=== PATIENT | male | born 1990 | race Caucasian/White ===

== ENCOUNTER 2019-12-21 11:30 | Emergency (ER) | payer BC, OTHER ==
[2019-12-21] MEDS ORDERED: ONDANSETRON 4 MG (ODT) TAB ONE (13:00)
--- NOTE | 2019-12-21 13:58 | ER ---
Nurse's Notes [facility] Name: Edmond Lozano Age: 29 yrs Sex: Male : 1990 Arrival Date: 12/21/2019 Time: 11:33 Bed 16 Private MD: Diagnosis: Vomiting;Acute upper respiratory infection, unspecified Presentation: 12/20 11:59 Chief complaint: Patient states: fever last night, vomiting since this morning, also iw has chills, cough, runny nose. Coronavirus screen: congestion, cough unrelated to allergies, fever, muscle pain, runny nose, Client presents with at least one sign or symptom that may indicate coronavirus-19. Standard/surgical mask placed on the client. Provider contacted for isolation considerations. Ebola Screen: Patient negative for fever greater than or equal to 101.5 degrees Fahrenheit, and additional compatible Ebola Virus Disease symptoms Patient denies exposure to infectious person. Patient denies travel to an Ebola-affected area in the 21 days before illness onset. No symptoms or risks identified at this time. Initial Sepsis Screen: Does the patient meet any 2 criteria? No. Patient's initial sepsis screen is negative. Does the patient have a suspected source of infection? No. Patient's initial sepsis screen is negative. Risk Assessment: Do you want to hurt yourself or someone else? Patient reports no desire to harm self or others. 11:59 Method Of Arrival: Ambulatory iw 11:59 Acuity: ELA 3 iw 12:01 Onset of symptoms was December 20, 2019. iw Historical: - Allergies: 12:02 No Known Allergies; iw - Home Meds: 12:02 None [Active]; iw - PMHx: 12:02 PTSD; iw - PSHx: 12:02 None; iw - Immunization history:: Adult Immunizations up to date. - Social history:: Smoking status: . Screenin:00 Abuse screen: Denies threats or abuse. Denies injuries from another. Nutritional ca1 screening: No deficits noted. Tuberculosis screening: No symptoms or risk factors identified. Fall Risk None identified. Assessment: 12:00 General: Appears in no apparent distress. comfortable, Behavior is calm, cooperative, ca1 appropriate for age. Pain: Denies pain. Neuro: Level of Consciousness is awake, alert, obeys commands, Oriented to person, place, time, situation. Cardiovascular: Heart tones S1 S2 present Capillary refill < 3 seconds Patient's skin is warm and dry. Respiratory: Airway is patent Respiratory effort is even, unlabored, Respiratory pattern is regular, symmetrical, Breath sounds are clear bilaterally. GI: Abdomen is flat, non-distended, Bowel sounds present X 4 quads. Abd is soft and non tender X 4 quads. Reports nausea, vomiting. : No signs and/or symptoms were reported regarding the genitourinary system. EENT: No signs and/or symptoms were reported regarding the EENT system. Derm: Skin is intact, is healthy with good turgor, Skin is pink, warm \T\ dry. Musculoskeletal: Circulation, motion, and sensation intact. Capillary refill < 3 seconds. 13:00 Reassessment: Patient appears in no apparent distress at this time. Patient and/or ca1 family updated on plan of care and expected duration. Pain level reassessed. Patient is alert, oriented x 3, equal unlabored respirations, skin warm/dry/pink. 14:05 Reassessment: Patient appears in no apparent distress at this time. Patient and/or ca1 family updated on plan of care and expected duration. Pain level reassessed. Patient is alert, oriented x 3, equal unlabored respirations, skin warm/dry/pink. Vital Signs: 11:59 BP 116 / 81; Pulse 88; Resp 16 S; Temp 99.1; Pulse Ox 100% on R/A; Weight 63.5 kg; iw Height 5 ft. 8 in. (172.72 cm); 13:00 BP 116 / 74; Pulse 88; Resp 17 S; Pulse Ox 100% on R/A; ca1 14:00 BP 115 / 78; Pulse 87; Resp 15 S; Pulse Ox 100% on R/A; ca1 11:59 Body Mass Index 21.29 (63.50 kg, 172.72 cm) iw ED Course: 11:33 Patient arrived in ED. as 11:54 Brooklynn Tobias, MARY LOU is Primary Nurse. ca1 11:57 Quinn White NP is PHCP. pm1 11:57 Zackary Anguiano MD is Attending Physician. pm1 12:00 Patient has correct armband on for positive identification. Bed in low position. Call ca1 light in reach. Side rails up X 1. Pulse ox on. NIBP on. 12:01 Triage completed. iw 12:01 Arm band placed on. iw 14:05 No provider procedures requiring assistance completed. Patient did not have IV access ca1 during this emergency room visit. Administered Medications: 12:45 Drug: Zofran (Ondansetron) 4 mg Route: PO; ca1 Outcome: 13:58 Discharge ordered by . pm1 14:05 Discharged to home ambulatory. ca1 14:05 Condition: stable 14:05 Discharge instructions given to patient, Instructed on discharge instructions, follow up and referral plans. Demonstrated understanding of instructions, follow-up care. 14:09 Patient left the ED. ca1 Addendum: 12/23/2019 14:18 Addendum: COVID-19 Result: Positive result giiven to ED physician to notify pt. s s Physician: Mo Phillips MD Physician was able to contact pt and pt was notified of positive COVID-19 swab result. Physician answered pt questions. Signatures: Madiha Greene Irene, RN RN iw Cece Mccracken RN RN ss Quinn White, TECHNICAL PROGRAMS MANAGER TECHNICAL PROGRAMS MANAGER pm1 Brooklynn Tobias RN RN ca1
--- NOTE | 2019-12-21 13:58 | EDPHYS ---
Physician Documentation [facility] Name: Edmond Lozano Age: 29 yrs Sex: Male : 1990 Arrival Date: 12/21/2019 Time: 11:33 Bed 16 Private MD: ED Physician Zackary Anguiano HPI: 12/20 12:39 This 29 yrs old Male presents to ER via Ambulatory with complaints of Fever, pm1 Vomiting. 12:39 The patient reports fever, that was measured at 101 degrees Fahrenheit. Onset: The pm1 symptoms/episode began/occurred yesterday. Modifying factors: there are no obvious modifying factors. Associated signs and symptoms: Pertinent positives: sore throat, Fever, chills, cough, runny nose. Vomiting onset this AM with PO intake, Pertinent negatives: abdominal pain, diarrhea, headache, shortness of breath. Severity of symptoms: in the emergency department the symptoms are worse. The patient has not recently seen a physician. Patient worried about covid and needs testing to return to work. Historical: - Allergies: 12:02 No Known Allergies; iw - Home Meds: 12:02 None [Active]; iw - PMHx: 12:02 PTSD; iw - PSHx: 12:02 None; iw - Immunization history:: Adult Immunizations up to date. - Social history:: Smoking status: . ROS: 12:39 Eyes: Negative for injury, pain, redness, and discharge. pm1 12:39 Neck: Negative for injury, pain, and swelling, Cardiovascular: Negative for chest pain, palpitations, and edema. 12:39 Back: Negative for injury and pain, MS/Extremity: Negative for injury and deformity, Skin: Negative for injury, rash, and discoloration, Neuro: Negative for headache, weakness, numbness, tingling, and seizure. 12:39 Constitutional: Positive for body aches, chills, fever. 12:39 ENT: Positive for sore throat, Negative for ear pain. 12:39 Respiratory: Positive for cough. 12:39 Abdomen/GI: Positive for nausea, vomiting, Negative for abdominal pain, diarrhea, constipation. Exam: 12:39 Constitutional: This is a well developed, well nourished patient who is awake, alert, pm1 and in no acute distress. Head/Face: Normocephalic, atraumatic. 12:39 Neck: Trachea midline, no thyromegaly or masses palpated, and no cervical lymphadenopathy. Supple, full range of motion without nuchal rigidity, or vertebral point tenderness. No Meningismus. 12:39 Back: No spinal tenderness. No costovertebral tenderness. Full range of motion. Skin: Warm, dry with normal turgor. Normal color with no rashes, no lesions, and no evidence of cellulitis. MS/ Extremity: Pulses equal, no cyanosis. Neurovascular intact. Full, normal range of motion. 12:39 ENT: External ear(s): are unremarkable, Ear canal(s): are normal, TM's: are normal, Posterior pharynx: Tonsils: bilaterally enlarged, with erythema, no exudate, no ulcerations, erythema, that is mild, peritonsillar mass, is not appreciated. 12:39 Cardiovascular: Exam negative for acute changes, Rate: normal, Rhythm: regular, Pulses: no pulse deficits are appreciated. 12:39 Respiratory: Exam negative for acute changes, respiratory distress, shortness of breath. 12:39 Abdomen/GI: Exam negative for acute changes, Inspection: abdomen appears normal, Palpation: abdomen is soft and non-tender, in all quadrants. 12:39 Neuro: Exam negative for acute changes, Orientation: is normal, Mentation: is normal, Motor: is normal, moves all fours. Vital Signs: 11:59 BP 116 / 81; Pulse 88; Resp 16 S; Temp 99.1; Pulse Ox 100% on R/A; Weight 63.5 kg; iw Height 5 ft. 8 in. (172.72 cm); 13:00 BP 116 / 74; Pulse 88; Resp 17 S; Pulse Ox 100% on R/A; ca1 14:00 BP 115 / 78; Pulse 87; Resp 15 S; Pulse Ox 100% on R/A; ca1 11:59 Body Mass Index 21.29 (63.50 kg, 172.72 cm) iw MDM: 12:27 Patient medically screened. pm1 13:44 Data reviewed: vital signs. Data interpreted: Pulse oximetry: on room air is 100 %. pm1 Interpretation: normal. Counseling: I had a detailed discussion with the patient and/or guardian regarding: the historical points, exam findings, and any diagnostic results supporting the discharge/admit diagnosis, lab results, the need for outpatient follow up, to return to the emergency department if symptoms worsen or persist or if there are any questions or concerns that arise at home. 13:44 ED course: Patient passed PO challenge with zofran. Will d/c home with antiemetics. pm1 Pending covid results. 12/20 12:29 Order name: COVID-19 pm1 12/20 12:29 Order name: Flu; Complete Time: 13:43 pm1 12/20 12:29 Order name: Strep; Complete Time: 13:18 pm1 12/20 12:29 Order name: Droplet/Contact Precautions; Complete Time: 12:42 pm1 12/20 13:39 Order name: Throat Culture EDMS 12/20 12:29 Order name: Labs collected and sent; Complete Time: 13:09 pm1 12/20 12:29 Order name: PO challenge; Complete Time: 13:09 pm1 Administered Medications: 12:45 Drug: Zofran (Ondansetron) 4 mg Route: PO; ca1 Disposition: 18:21 Co-signature as Attending Physician, Zackary Anguiano MD. rn Disposition: 12/21/19 13:58 Discharged to Home. Impression: Acute upper respiratory infection, unspecified, Vomiting. - Condition is Stable. - Discharge Instructions: Antibiotic Resistance, Nausea and Vomiting, Adult, Upper Respiratory Infection, Adult, Viral Respiratory Infection, COVID-19. - Prescriptions for Zofran ODT 4 mg Oral tablet,disintegrating - place 1 tablet by TRANSLINGUAL route every 8 hours As needed; 20 tablet. - Work release form, Medication Reconciliation Form, Thank You Letter, Antibiotic Education, Prescription Opioid Use form. - Follow up: Emergency Department; When: As needed; Reason: Worsening of condition. Follow up: Private Physician; When: 2 - 3 days; Reason: Recheck today's complaints, Continuance of care, Re-evaluation by your physician. - Problem is new. - Symptoms have improved. Signatures: Dispatcher [employer] EDXochilt Alarcon RN RN iw Nieto, Roman, MD MD rn Marinas, Patrick, ART TRACER ART TRACER pm1 Brooklynn Tobias RN RN ca1 Corrections: (The following items were deleted from the chart) 13:58 13:58 12/21/2019 13:58 Discharged to Home. Impression: Vomiting. Condition is Stable. pm1 Forms are Medication Reconciliation Form, Thank You Letter, Antibiotic Education, Prescription Opioid Use. Follow up: Emergency Department; When: As needed; Reason: Worsening of condition. Follow up: Private Physician; When: 2 - 3 days; Reason: Recheck today's complaints, Continuance of care, Re-evaluation by your physician. Problem is new. Symptoms have improved. pm1 14:09 13:58 12/21/2019 13:58 Discharged to Home. Impression: Acute upper respiratory ca1 infection, unspecifiedVomiting. Condition is Stable. Forms are Medication Reconciliation Form, Thank You Letter, Antibiotic Education, Prescription Opioid Use. Follow up: Emergency Department; When: As needed; Reason: Worsening of condition. Follow up: Private Physician; When: 2 - 3 days; Reason: Recheck today's complaints, Continuance of care, Re-evaluation by your physician. Problem is new. Symptoms have improved. pm1
[2019-12-21 14:45] VITALS: TEMP 99.1; O2SAT 100
[2019-12-21 14:47] VITALS: BP 115/78
== END 2019-12-21 14:09 | disposition home or self-care (01) ==
LOC: ER 11:30
DX: U07.1 COVID-19 (principal); J06.9 Acute upper respiratory infection, unspecified; R11.10 Vomiting, unspecified
CPT/HCPCS: 87070; 87081; 87804 ×2; 99283; U0002